=== PATIENT | male | born 2000 | race Two or more races ===

== ENCOUNTER 2023-07-16 18:06 | Emergency (ER) | payer MEDICAID, OTHER ==
[~2023-07-16] VITALS: Ht 188 cm; Wt 127.0 kg
[2023-07-16 18:12] VITALS: BP 141/80; PULSE 98; RESP 18; O2SAT 97
[2023-07-16 21:53] LABS: Basophils # (auto) 0 10 ^3/uL (0-0.2); Basophils % (auto) 0.2 % (0.0-2.0); Eosinophils # (auto) 0.1 10 ^3/uL (0-0.8); Eosinophils % (auto) 0.5 % (0.0-7.0); Hematocrit 42.5 % (41.0-53.0); Hemoglobin 14.8 g/dL (13.5-17.5); Lymphocytes # (auto) 3.4 10 ^3/uL (0.4-5.4); Lymphocytes % (auto) 28.8 % (10.0-50.0); Mean Corpuscular Hemoglobin 30.8 pg (28.0-32.0); Mean Corpuscular Hgb Conc. 34.7 g/dL (32.0-36.0); Mean Corpuscular Volume 88.7 fL (80.0-100.0); Monocytes # (auto) 0.7 10 ^3/uL (0-1.3); Monocytes % (auto) 5.7 % (0.0-12.0); Neutrophils # (auto) 7.6 10 ^3/uL (1.6-8.6); Neutrophils % (auto) 64.8 % (37.0-80.0); Nucleated Red Blood Cells % 0.1 %; Red Blood Cells 4.79 10^6/uL (4.5-5.90); Red Cell Distribution Width 13.5 % (11.8-14.3); White Blood Cell 11.7 10^3/uL (4.4-10.8)
[2023-07-16 22:09] LABS: Alanine Aminotransferase 33 U/L (7-40); Albumin 4.8 g/dL (3.2-4.8); Alkaline Phosphatase 90 U/L (46-116); Anion Gap 8 (5-15); Aspartate Aminotransferase 12 U/L (13-40); BUN/Creatinine Ratio 10.1 (10.0-20.0); Bilirubin, Total 0.6 mg/dL (0.2-1.0); Blood Urea Nitrogen 10 mg/dL (9-23); Calcium 9.6 mg/dL (8.5-10.1); Carbon Dioxide 27 mmol/L (20-30); Chloride 104 mmol/L (98-107); Glucose 90 mg/dL (74-106); Sodium 139 mmol/L (136-145); Total Protein 8.2 g/dL (5.7-8.2)
[2023-07-16] MEDS ORDERED: ZOFR4T PO (23:21)
[2023-07-16] MEDS ORDERED: IBUP-1455 PO (23:21)
[2023-07-16] MEDS ORDERED: FLUT1SPR5 (23:21)
[2023-07-16] MEDS ORDERED: AUG875T PO (23:21)
[2023-07-16] MEDS ORDERED: DexAMETHasone SOD PHOS 10MG/1ML VIAL INJ IM ONE (23:30)
[2023-07-16] MEDS ORDERED: ONDANSETRON ODT 4 MG TAB PO ONE (23:30)
[2023-07-16] MEDS ORDERED: KETOROLAC TROMETH 60MG/2ML VIAL IM ONE (23:30)
== END 2023-07-16 23:53 | disposition home or self-care (01) ==
LOC: ER 18:06
DX: J32.4 Chronic pansinusitis (principal); R51.9 Headache, unspecified
CPT/HCPCS: 36415; 70450; 70486; 80053; 85025; 96372; 99285; J1100; J1885; Q0162

== ENCOUNTER 2024-09-06 06:11 | Emergency (ER) | payer SELFPAY ==
[~2024-09-06] VITALS: Ht 188 cm; Wt 139.8 kg
[~2024-09-06 06:11] MED LIST: AUG875T PO; FLUT1SPR5; IBUP-1455 PO; ZOFR4T PO
[2024-09-06 06:21] VITALS: BP 121/70
[2024-09-06 07:02] VITALS: PULSE 126; RESP 16; O2SAT 95
--- NOTE | 2024-09-06 07:29 | ED.PDOC ---
Eye-HPI HPI Comments This is a pleasant 23-year-old obese male that was diagnosed with influenza three days ago in his currently taking ibuprofen, Tylenol, Tamiflu presents for a foreign body sensation to the throat. Reports he took ibuprofen last night and patient states he feels like the medication went down the wrong pipe. States he feels that the pill is lodged in his throat. Patient reports he is still able to maintain fluids. Denies chest pain shortness of breath Denies fevers chills night sweats unintentional weight loss Denies persistent chest pain, shortness of breath, leg swelling Denies history of asthma nor any breathing conditions Denies history of pneumonia Denies recent international travel Chief Complaint: Foreign Body Time Seen by MD: 06:48 Primary Care Provider: GANGA Hooker Notes: Nurses Notes, Medications, Allergies Allergies: Coded Allergies: NO KNOWN ALLERGIES (Unverified , 07/16/23) Home Meds Active Scripts Ondansetron Odt 4MG Tab (ZOFRAN PO) 4 Mg Tb, 1 TAB PO Q8HR, #20 TAB ODT TAB-DISSOLVE IN MOUTH, THEN SWALLOW as needed for nausea vomiting Prov:ANGUS ALFRED [employer] 07/16/23 Ibuprofen Micronized (Ibuprofen) 800 Mg Tab, 1 TAB PO Q8HR, #20 TAB as needed for pain Prov:ANGUS ALFRED [employer] O[employer] 07/16/23 Fluticasone Propionate (Nasal) (Flonase Allergy Relief) 50 Mcg/Act Spr, 1 INH NA BID, #1 SPRAY use on both nostrils Prov:ANGUS ALFRED [employer] OPERATOR 07/16/23 Amoxicillin & Pot Clavulanate (AUGMENTIN TABLET) 875 Mg Tb, 1 TAB PO BID for 10 Days, #20 TAB Prov:ANGUS ALFRED [employer] OPERATOR 07/16/23 Information Source: Patient Mode of Arrival: Ambulatory Past Medical History PAST MEDICAL HISTORY: Denies Surgical History: Denies all surgeries Family History Family History: Reviewed,noncontributory to illness Social History Smoker: Non-Smoker Alcohol: Denies ETOH Use Drugs: Denies Drug Use All Other Systems: Reviewed and Negative (Per HPI) Physical Exam General Appearance: No Apparent Distress, Normal HEENT: Head (Normocephalic), Normal ENT Inspection, Pharynx Normal (Moist mucous membranes. No airway obstruction. No deviation of the tongue), TMs Normal Neck: Full Range of Motion, Non-Tender, Normal, Normal Inspection Respiratory: Chest Non-Tender, Lungs Clear, No Accessory Muscle Use, No Respiratory Distress, Normal Breath Sounds Cardiovascular: No Edema, No JVD, No Murmur, No Gallop, Normal Peripheral Puls es, Regular Rate/Rhythm Breast Exam: Deferred Gastrointestinal: No Organomegaly, Non Tender, No Pulsatile Mass, Normal Bowel Sounds, Soft Genitalia: Deferred Pelvic: Deferred Rectal: Deferred Extremities: No calf tenderness, Normal capillary refill, Normal inspection, Normal range of motion, Non-tender, No pedal edema Musculoskeletal : Apperance: Normal Neurologic: Alert, message clerk II-XII nml as Tested, No Motor Deficits, Normal Affect, Normal Mood, No Sensory Deficits Cerebellar Function: Normal Reflexes: Normal Skin: Dry, Normal Color, Warm Lymphatic: No Adenopathy Was a procedure done? Was a procedure done?: No EENT DIFF Eye: Other Sore Throat: Streptococcal, Viral Pharyngitis, URI X-Ray, Labs, Meds, VS Vital Signs Date Time Temp Pulse Resp B/P (MAP) Pulse Ox O2 Delivery O2 Flow Rate FiO2 09/06/24 07:02 126 16 95 Room Air 09/06/24 06:21 102.7 126 16 121/70 (87) 95 X-Ray, Labs, Meds, VS Comment Patient declined Tylenol ibuprofen to manage his pain during the length of his stay. Patient states he will take medication as he gets home Patient is stable for discharge at this time. External notes reviewed. Test results and diagnostic imaging interpreted. All diagnostic findings, discharge care, education and instructions provided Follow-up with PCP in 2 to 3 days Patient verbalized understanding and agreed to treatment plan Vital signs stable, afebrile, no acute distress noted Patient ambulatory with strong steady gait Advised to return precautions for any new or worsening symptoms, return to ER immediately for re-evaluation Patient is aware that the purpose of this visit was for an acute medical emergency requiring emergent stabilization. Chronic conditions, including malignancies have not been ruled out. Patient is instructed to follow up with PCP as directed and discharge instructions for continued care and workup. If unable to arrange follow-up, patient is to return to the emergency department for reassessment. Patient (parent or legal guardian if applicable) was given verbal and written discharge instructions and acknowledges understanding. Time of 1ST Reevaluation: 07:26 Reevaluation 1ST: Improved Patient Education/Counseling: Diagnosis, Treatment Family Education/Counseling: Diagnosis, Treatment Departure 1 Departure Time of Disposition: 08:10 Impression: Primary Impression: Influenza A Disposition: 01 HOME / SELF CARE / HOMELESS Condition: Stable Discharged With: Self Critical Care Note Critical Care Time?: No Stability Stability form required: No Heart Score Heart Score: Heart Score Response (Comments) Value History N/A 0 EKG N/A 0 Age N/A 0 Risk Factors N/A 0 Troponin N/A 0 Total 0 JUVENAL WERNER NP Sep 06, 2024 07:29
--- NOTE | 2024-09-06 08:02 | DVH ---
CHEST RADIOGRAPH Indication: FB Technique: Single frontal view of the chest was obtained COMPARISON: None FINDINGS: Lines and Tubes: None Lungs: Clear Pleura: No effusion. No pneumothorax. Cardiomediastinal contours: Unremarkable Bones: Unremarkable IMPRESSION: No acute disease. No appreciable radiopaque foreign body.
--- NOTE | 2024-09-06 08:08 | DVH ---
Procedure: XY NECK FOR SOFT TISSUE Exam Date: 09/06/2024 07:41 AM History: FB Comparison Study: None available at time of dictation. Soft Tissue Neck: AP and lateral views. Findings: No evidence of soft tissue swelling or radiopaque foreign body. Epiglottis appears normal. Impression: Negative soft tissue neck.
== END 2024-09-06 08:11 | disposition home or self-care (01) ==
LOC: ER 06:11
DX: J10.1 Influenza due to other identified influenza virus with other respiratory manifestations (principal); E66.9 Obesity, unspecified; Z79.899 Other long term (current) drug therapy
CPT/HCPCS: 70360; 71045